=== PATIENT | male | born 1960 | race Caucasian/White ===

== ENCOUNTER 2021-04-11 09:30 | Outpatient (RCR) | payer OTHER, BC, SELFPAY | END 2021-04-11 10:44 | disposition home or self-care (01) | LOC: HO.OT 09:30 | PROVIDERS: PCP Internal Medicine; Visit Provider Internal Medicine | DX: M25.531 Pain in right wrist (principal) | CPT/HCPCS: 29130; 97110; 97140; 97165; 97760 ==